=== PATIENT | male | born 2000 | race Two or more races ===

== ENCOUNTER → 2024-06-13 | Emergency (ER) | payer OTHER ==
[~2024-06-13] VITALS: Ht 180.3 cm; Wt 96.2 kg
[~2024-06-13] MED LIST: ACETAMINOPHEN 500 MG GEL..CAP PO ONE
[2024-06-13 21:29] VITALS: BP 129/79; O2SAT 100
== END | disposition left against medical advice (07) ==
LOC: ER 21:11
DX: Z53.21 Procedure and treatment not carried out due to patient leaving prior to being seen by health care provider (principal)